=== PATIENT | female | born 1950 | race African-American/Black ===

== ENCOUNTER → 2016-08-06 | Outpatient (CLI) | payer OTHER ==
[~2016-08-06] VITALS: Ht 157.5 cm; Wt 56.7 kg
== END | disposition home or self-care (01) ==
LOC: AMB 11:21
PROC: 0DBL8ZX Excision of Transverse Colon, Via Natural or Artificial Opening Endoscopic, Diagnostic (ICD-10-PCS; principal; 2016-08-06)
DX: Z12.11 Encounter for screening for malignant neoplasm of colon (principal); D12.3 Benign neoplasm of transverse colon; K57.30 Diverticulosis of large intestine without perforation or abscess without bleeding; K64.8 Other hemorrhoids; J44.9 Chronic obstructive pulmonary disease, unspecified; G57.93 Unspecified mononeuropathy of bilateral lower limbs; F17.210 Nicotine dependence, cigarettes, uncomplicated; Z91.030 Bee allergy status; Z82.49 Family history of ischemic heart disease and other diseases of the circulatory system; Z80.3 Family history of malignant neoplasm of breast
CPT/HCPCS: 88305

== ENCOUNTER 2017-02-19 10:10 | Emergency (ER) | payer OTHER ==
[~2017-02-19] VITALS: Ht 154.9 cm; Wt 60.0 kg
[2017-02-19] MEDS ORDERED: MOTRIN600 MG PO (10:34)
[2017-02-19] MEDS ORDERED: PEPCID20 MG PO (10:34)
[2017-02-19] MEDS ORDERED: BENADRYL25 MG PO (10:34)
[2017-02-19 10:47] VITALS: BP 138/70
== END 2017-02-19 10:54 | disposition home or self-care (01) ==
LOC: EME 10:10
DX: S40.262A Insect bite (nonvenomous) of left shoulder, initial encounter (principal); W57.XXXA Bitten or stung by nonvenomous insect and other nonvenomous arthropods, initial encounter; F17.200 Nicotine dependence, unspecified, uncomplicated
CPT/HCPCS: 99281; 99283